=== PATIENT | male | born 1995 | race Caucasian/White ===

== ENCOUNTER 2022-10-27 20:14 | Outpatient (CLI) | payer OTHER, MEDICARE, SELFPAY | END 2022-10-27 20:15 | disposition home or self-care (01) | PROVIDERS: Visit Provider Internal Medicine | DX: S99.921A Unspecified injury of right foot, initial encounter (principal); X58.XXXA Exposure to other specified factors, initial encounter; Y92.63 Factory as the place of occurrence of the external cause | CPT/HCPCS: A0425; A0427 ==

== ENCOUNTER 2022-10-27 20:37 | Emergency (ER) | payer OTHER, MEDICARE, SELFPAY ==
[2022-10-27 20:50] VITALS: BP 119/69; PULSE 58; RESP 16; TEMP 36.5; O2SAT 100; BMI 19.5
--- NOTE | 2022-10-27 20:56 | CRLHL7_ITS ---
For Patients: As a result of the Cures Act, medical imaging exams and procedure reports are released immediately into your electronic medical record. You may view this report before your referring provider. If you have questions, please contact your health care provider. Indication: Trauma. Technique: Right foot, 3 views. Comparison: None. Findings: Bones: fracture at the medial base of the 2nd proximal phalanx with extension to the MTP joint.. Joint spaces: Unremarkable. Soft tissues: Unremarkable. Impression: Fracture of the medial base of the 2nd proximal phalanx with extension to the MTP joint. Dictated by Joey Salas MD @ 10/27/2022 10:10:29 PM (Electronically Signed)
--- NOTE | 2022-10-27 21:29 | ED_ITS ---
HPI - General Adult General Date Seen: 10/27/22 Chief complaint: Extremity Pain/Injury, Lower Stated complaint: Foot Injury Time Seen by Provider: 10/27/22 20:54 Source: patient History of Present Illness HPI narrative: Patient is a 27-year-old who says his right foot was caught between a forklift and a Pallet. He complains of pain by the 5th toe. He was wearing a shoe at the time, arrives via EMS with his shoe removed. Did not receive any medications. No significant swelling or bruising, no deformity and no open wounds. No other injuries reported. Related Data Home Medications Medication Instructions Recorded Confirmed multivitamin (Daily Multi-Vitamin 1 tab PO DAILY 10/27/22 10/27/22 tablet) Allergies Allergy/AdvReac Type Severity Reaction Status Date / Time No Known Drug Allergies Allergy Verified 10/27/22 21:39 Review of Systems Status of ROS: Reports: 6 or more systems reviewed and unremarkable except as noted in History and below [facility] Medical History (Updated 10/27/22 @ 22:26 by Rosamaria Guerrero MD) Patient denies medical problems Social History Smoking Status: Never smoker Do you use any of these nicotine containing products: None How often do you have a drink containing alcohol: never How often do you have six or more drinks on one occasion: Never AUDIT-C Alcohol total score: 0 Non-prescribed substance use: denies use service: No Exam Narrative: Exam Narrative: Vital signs as noted above. In general, an alert, well-appearing patient. Head: Normocephalic, atraumatic. Eyes: Pupils are equal reactive. Extraocular movements are full. Conjunctivae are normal. Extremities: Well perfused. No edema. On the right, he has tenderness of the 5th toe. Remainder the foot is a traumatic nontender. Ankle and distal leg are nontender. Neurologic: Patient is alert and oriented to person and place. Speech is fluent. Face is symmetric. Moves all extremities equally. Affect: Normal. Skin: Warm and dry. Well perfused. Const: Vital Signs, click to edit/add: Vital Signs - 24 hr 10/27/22 20:50 10/27/22 22:30 Temperature 97.7 F Pulse Rate [Left P ulse Oximeter] 58 L 72 Respiratory Rate 16 14 Blood Pressure [Ri ght Upper Arm] 119/69 107/79 Pulse Oximetry 100 100 Oxygen Delivery Me thod Room Air Room Air Documenting provider has reviewed patient's vital signs: yes Course Course Hospital Course: X-rays of the right foot by my review show a fracture of the base of the proximal phalanx of the 2nd toe. Otherwise negative. Final radiology report is the same. We kuldip-taped his foot, will give him hard sole shoe. Ice, Motrin Tylenol. Primary care follow-up in a week or 2 for recheck. Discussed that the remainder the foot is contused but I do not see evidence of her fracture Vital Signs Vital signs: Initial Vital Signs Temperature 97.7 F 10/27/22 20:50 Temperature Source Temporal Artery Scan 10/27/22 20:50 Pulse Rate 58 L 10/27/22 20:50 Pulse Rhythm 10/27/22 20:50 Respiratory Rate 16 10/27/22 20:50 Blood Pressure 119/69 10/27/22 20:50 Blood Pressure Mean 85 10/27/22 20:50 Blood Pressure Position Semi-Fowlers 10/27/22 20:50 Pulse Oximetry 100 10/27/22 20:50 Oxygen Delivery Method 10/27/22 20:50 Vital Signs Temperature 97.7 F 10/27/22 20:50 Pulse Rate 58 L 10/27/22 20:50 Respiratory Rate 16 10/27/22 20:50 Blood Pressure 119/69 10/27/22 20:50 Pulse Oximetry 100 10/27/22 20:50 Oxygen Delivery Method 10/27/22 20:50 Temperature 97.7 F 10/27/22 20:50 Pulse Rate 72 10/27/22 22:30 Respiratory Rate 14 10/27/22 22:30 Blood Pressure 107/79 10/27/22 22:30 Pulse Oximetry 100 10/27/22 22:30 Oxygen Delivery Method 10/27/22 22:30 Discharge Plan Discharge Clinical Impression: Closed fracture of second toe of right foot Patient Disposition: Home, Self-Care Condition: Stable Instructions: Toe Fracture (ED) Additional Instructions: Kuldip tape and hard sole shoe for the next roughly 4 weeks. Follow up with primary care in 2 weeks for recheck. Ibuprofen or Tylenol as needed for pain. Prescriptions: No Action multivitamin [Daily Multi-Vitamin] Tablet 1 tab PO DAILY Stand Alone Forms: [employer] Info Instructions
[2022-10-27 22:30] VITALS: BP 107/79; PULSE 72; RESP 14; O2SAT 100
--- NOTE | 2022-10-27 22:45 | ED.NURSE ---
Kuldip tapping applied to second and third toe. Ortho shoe applied.
--- NOTE | 2022-10-28 13:26 | ED.NURSE ---
Pt called and asked for a note to be off work. Dr Castro reviewed visit and note written. 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 Pt aware.
== END 2022-10-27 22:45 | disposition home or self-care (01) ==
PROVIDERS: Emergency Provider Emergency Medicine
DX: S92.511A Displaced fracture of proximal phalanx of right lesser toe(s), initial encounter for closed fracture (principal); W24.0XXA Contact with lifting devices, not elsewhere classified, initial encounter; Y93.89 Activity, other specified; Y92.69 Other specified industrial and construction area as the place of occurrence of the external cause; Y99.0 Civilian activity done for income or pay
CPT/HCPCS: 73630; 99283; 99284

== ENCOUNTER 2022-10-31 16:20 | Emergency (ER) | payer OTHER, MEDICARE, SELFPAY ==
[2022-10-31 16:26] VITALS: BP 112/71; PULSE 74; RESP 18; TEMP 36.6; O2SAT 98; BMI 19.5
--- NOTE | 2022-10-31 16:42 | CRLHL7_ITS ---
For Patients: As a result of the Century Cures Act, medical imaging exams and procedure reports are released immediately into your electronic medical record. You may view this report before your referring provider. If you have questions, please contact your health care provider. HISTORY: Right foot pain and swelling. TECHNIQUE: Right foot 2 views. COMPARISON: Right foot radiographs 10/27/2022. FINDINGS: Unchanged alignment of mildly displaced acute intra-articular fracture of the medial base of the 2nd proximal phalanx. No new bone abnormality. No dislocation. Joint spaces are otherwise maintained. Soft tissue swelling in the forefoot. IMPRESSION: No change. Mildly displaced acute intra-articular fracture of the 2nd proximal phalanx. Dictated by Riccardo Villatoro MD @ 10/31/2022 5:05:23 PM (Electronically Signed)
--- NOTE | 2022-10-31 17:26 | ED.GENADULT ---
HPI - General Adult General Date Seen: 10/31/22 Chief complaint: Extremity Pain/Injury, Lower Stated complaint: Right foot injury Time Seen by Provider: 10/31/22 16:37 Source: patient History of Present Illness HPI narrative: Patient is a 27-year-old male who I actually saw here 5 days ago after his right foot was caught between a forklift and a Pal[place]. At that time he was diagnosed with a fracture of the base of his 2nd toe. He had contusion of his foot. He says that he was told that it would feel better within a few days and he says that he still has pain and swelling. He says he can not walk on that foot. He is therefore back for re-evaluation. Related Data Home Medications Medication Instructions Recorded Confirmed multivitamin (Daily Multi-Vitamin 1 tab PO DAILY 10/27/22 10/27/22 tablet) Allergies Allergy/AdvReac Type Severity Reaction Status Date / Time No Known Drug Allergies Allergy Verified 10/27/22 21:39 Review of Systems Status of ROS: Reports: 6 or more systems reviewed and unremarkable except as noted in History and below [facility] Medical History Patient denies medical problems Social History Smoking Status: Never smoker Do you use any of these nicotine containing products: None How often do you have a drink containing alcohol: never How often do you have six or more drinks on one occasion: Never AUDIT-C Alcohol total score: 0 Non-prescribed substance use: denies use service: No Exam Narrative: Exam Narrative: Vital signs reviewed In general an alert nontoxic male. Extremities: Examination of the right foot reveals diffuse swelling throughout the foot. The 2nd and 3rd toes are sarah-taped. This was not removed. He has a little bit of bruising noted along the periphery of the foot primarily. No apparent focal tenderness. Distal CMS is normal. Skin: Warm and dry, intact. No erythema or warmth. Const: Vital Signs, click to edit/add: Vital Signs - 24 hr 10/31/22 16:26 Temperature 97.8 F Pulse Rate [Pulse Oximeter] 74 Respiratory Rate 18 Blood Pressure [Ri ght Upper Arm] 112/71 Pulse Oximetry 98 Oxygen Delivery Me thod Room Air Documenting provider has reviewed patient's vital signs: yes Course Course Hospital Course: I repeated his foot x-rays. I still see the previously noted fracture of the 2nd phalanx, I do not see any additional fractures. Final radiology report is likewise read as a fracture of the proximal 2nd phalanx and no additional findings. I did talk briefly with Dr. Guerra about the need for additional imaging. 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 For today, I am having switched into a boot for additional support/protection. We can add crutches if needed. Continue with ibuprofen and Tylenol. Stressed that this will take more than a couple of days to feel entirely better. Vital Signs Vital signs: Initial Vital Signs Temperature 97.8 F 10/31/22 16:26 Temperature Source Temporal Artery Scan 10/31/22 16:26 Pulse Rate 74 10/31/22 16:26 Respiratory Rate 18 10/31/22 16:26 Blood Pressure 112/71 10/31/22 16:26 Blood Pressure Mean 84 10/31/22 16:26 Blood Pressure Position Supine 10/31/22 16:26 Pulse Oximetry 98 10/31/22 16:26 Oxygen Delivery Method 10/31/22 16:26 Vital Signs Temperature 97.8 F 10/31/22 16:26 Pulse Rate 74 10/31/22 16:26 Respiratory Rate 18 10/31/22 16:26 Blood Pressure 112/71 10/31/22 16:26 Pulse Oximetry 98 10/31/22 16:26 Oxygen Delivery Method 10/31/22 16:26 Temperature 97.8 F 10/31/22 16:26 Pulse Rate 74 10/31/22 16:26 Respiratory Rate 18 10/31/22 16:26 Blood Pressure 112/71 10/31/22 16:26 Pulse Oximetry 98 10/31/22 16:26 Oxygen Delivery Method 10/31/22 16:26 Discharge Plan Discharge Clinical Impression: Closed fracture of second toe of right foot Patient Disposition: Home, Self-Care Condition: Stable Instructions: Walking Boot (ED) Additional Instructions: Orthopedic follow-up as scheduled. They will decide with a need additional imaging to look for subtle fractures or soft tissue injuries which we may not be able to see on regular x-rays. Ice, elevate your foot as able to help with swelling. Continue with ibuprofen and Tylenol. Prescriptions: No Action multivitamin [Daily Multi-Vitamin] Tablet 1 tab PO DAILY Follow Up/Referrals: Provider,Not a Local [Primary Care Provider] - Stand Alone Forms: [employer] Info Instructions
== END 2022-10-31 17:49 | disposition home or self-care (01) ==
PROVIDERS: Emergency Provider Emergency Medicine
DX: S92.514 Nondisplaced fracture of proximal phalanx of right lesser toe(s) (principal)
CPT/HCPCS: 73620; 99283